=== PATIENT | male | born 1980 | race African-American/Black ===

== ENCOUNTER 2023-06-03 09:16 | Emergency (ER) | payer BC, OTHER ==
[2023-06-03] MEDS ORDERED: Lidocaine 1% w/Epinephrine 1:200K 30 ML VIAL ONE (09:25)
[2023-06-03] MEDS ORDERED: Bacitracin 1 PK ONE (09:56)
[2023-06-03] MEDS ORDERED: Boostrix 0.5 ML (Tdap) VIAL (>/=7 yrs of age) ONE (09:56)
== END 2023-06-03 10:06 | disposition home or self-care (01) ==
LOC: CSHERS 09:16
DX: S81.812A Laceration without foreign body, left lower leg, initial encounter (principal); I10 Essential (primary) hypertension; F17.210 Nicotine dependence, cigarettes, uncomplicated; W26.9XXA Contact with unspecified sharp object(s), initial encounter
CPT/HCPCS: 12002; 90471; 90715

== ENCOUNTER 2023-06-15 21:16 | Emergency (ER) | payer OTHER | END 2023-06-15 22:44 | disposition home or self-care (01) | LOC: CSHERS 21:16 | DX: L03.116 Cellulitis of left lower limb (principal); I10 Essential (primary) hypertension; F17.210 Nicotine dependence, cigarettes, uncomplicated | CPT/HCPCS: 99283 ==

== ENCOUNTER 2023-06-18 23:49 | Emergency (ER) | payer OTHER | END 2023-06-19 03:30 | disposition home or self-care (01) | LOC: CSHERS 23:49 | DX: T81.32XA Disruption of internal operation (surgical) wound, not elsewhere classified, initial encounter (principal); I10 Essential (primary) hypertension; F17.210 Nicotine dependence, cigarettes, uncomplicated | CPT/HCPCS: 99283 ==